=== PATIENT | male | born 1975 | race Two or more races ===

== ENCOUNTER 2023-08-31 13:30 | Outpatient (AMB) | payer MEDICAID, SELFPAY ==
--- NOTE | 2023-08-31 13:37 | A.SPINEOV_ITS ---
Intake Visit Reasons: Lumbar Spondylosis Intake Note: Mr. Elizabeth is here today c/o back pain. MRI done at [facility]. Forensics Team Director Required: No Allergies No Known Allergies Allergy (Verified 10/28/23 12:57) Assessment & Plan Assessment & Plan (1) Lumbar radiculopathy: Code(s): M54.16 - Radiculopathy, lumbar region Category: Medical Plan Dear DIONICIO Benavidez, Thank you for referring Bryn to our office today. He is a pleasant 47 year old male who comes in today with a CC of low back pain with shooting pains into his right lower extremity. He reports that this has been ongoing for years, and is unable to identify a specific inciting incident. He states that this has been treated with cortisone injections at [facility]. In addition to this he takes gabapentin and [id number] Tylenol to help mitigate his pain. When describing his radiculopathy he states it starts in his low back and shoots into his right lateral thigh. He reports some numbness in his right lateral thigh as well. 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 In his incoming medical records from his primary care there was some report of a remote Hx of a stress fracture, but the patient is unable to specify exactly where in the spine this happened. PMH: Appendectomy, ED, abdominal hernia, major depressive disorder, Hx hepatic cirrhosis, ROBERT on CPAP Social hx: 1/2 pack cigarettes daily, Opiate use disorder (last use 04/2023) with Hx Suboxone clinics (none current). Medications: gabapentin, Celebrex. Allergies: NKDA. Physical exam: Bryn has 5/5 strength in his upper and lower extremities. He does elicit pain to right-sided knee flexion stating it causes right hip pain. He reports slight hypoesthesia to his right lateral hip. Denies any other sensational changes. His bilateral patellar reflexes are 1+ hypoactive. He ambulates well without an antalgic gait. No spasticity. (-) bilateral straight leg raise. (-) clonus. Imaging review: MRI of the lumbar spine completed at [facility] shows no obvious nerve root impingement. The central canal and bilateral foramen appear patent overall. There is some mild central canal and formainal stenosis from L2-5 but this is minimal / not concerning neurologically. Impression: Bryn is a pleasant 47 year old male who is unfortunately suffering from both back pain and some R sided leg pain. His MRI is non-surgical. He expressed interest in continued cortisone injections, as he no longer goes to [facility]. I informed him I would have a referral completed for our colleagues in pain management / physiatry. They will most likely need to obtain his records from [facility] to identify what conservative measures he has exhausted with their practice. Thank you for allowing us to care for your patient. The total time spent with this visit with this patient was 45 minutes reviewing history, physical exam, MRI imaging review, and implementation of treatment plan or further diagnostic testing Mina Lewis MD,PhD [facility] Orders: Referrals Pain Management Referral M54.9 - Dorsalgia, unspecified Coding Level of Care Code New Pt Level 4 (85629) Diagnoses Lumbar radiculopathy M54.16
== END 2023-08-31 14:11 | disposition home or self-care (01) ==
PROVIDERS: PCP Nurse Practitioner Family; Referring Provider Nurse Practitioner Family; Visit Provider Physician Assistant
DX: M54.16 Radiculopathy, lumbar region (principal)
CPT/HCPCS: 99204

== ENCOUNTER → 2023-08-31 13:30 | Outpatient (BNVA) | payer MEDICAID, SELFPAY | PROVIDERS: PCP Nurse Practitioner Family; Visit Provider Physician Assistant | DX: M54.16 Radiculopathy, lumbar region (principal) | CPT/HCPCS: 99212 ==

== ENCOUNTER 2023-10-28 12:37 | Outpatient (AMB) | payer MEDICAID, SELFPAY ==
[2023-10-28 12:56] VITALS: BP 146/80; PULSE 91; O2SAT 92; BMI 32.5
--- NOTE | 2023-10-28 12:56 | MHC.OFFVIS ---
Vital Signs 10/28/23 12:56 Height 5 ft 8 in Weight 214 lb BMI 32.5 BP 146/80 H Blood Pressure Location Lt brachial Position Sitting Pulse 91 Pulse Source Pulse Oximeter Pulse Oximetry (%) 92 Oxygen Delivery Method Room Air Intake Visit Reasons: Dorsalgia Allergies No Known Allergies Allergy (Verified 10/28/23 12:57) Medication List - Last Reconciled 10/28/23 by Aleida Fung gabapentin 800 mg PO TID HPI Comments Details: Bryn presents to the office today for evaluation management of his chronic lower back pain He has been suffering with this pain for many years, recently was evaluated by neuro spine and referred here for management. He denies inciting injury, fall, trauma Last year he was getting cortisone injections at [email or web address]. He then missed a couple of appointments and they are no longer allowing him to schedule injection appointments. He states his symptoms are the same as they were while he was receiving these injections and these injections provided him 6 months of pain relief each time Endorses midline/right lower back pain with radiation down the right leg to the foot Pain today is rated as an 8/10, constant throughout the day Pain is exacerbated by bending, lifting, sitting Currently taking gabapentin with some improvement of his symptoms yet pain persists Denies red flag symptoms including new loss of bowel, bladder or saddle anesthesia Completed physical therapy 9 months ago with some improvement but no resolution and since stopping physical therapy the pain has worsened In terms of muscle damage condition is described as aching, spasming, stabbing, sharp, tingling, cramping, throbbing Pain is negatively impacting patient's enjoyment of life, general activity, mood, normal work, recreational activities, sleep Endorses 1/2 pack per day smoking Denies alcohol or illicit substance use Denies implantable devices, pacemaker or defibrillator Denies current use of anticoagulants Review of Systems Const All systems reviewed & are unremarkable except as noted in HPI and below Physical Exam Vital Signs: Last Vital Signs Pulse 91 10/28/23 12:56 BP 146/80 H 10/28/23 12:56 Pulse Ox 92 10/28/23 12:56 Oxygen Delivery Method Room Air 10/28/23 12:56 BMI result Body Mass Index 32.5 General: awake, alert, oriented. Answers questions appropriately. Fully engaged in examination. Skin: warm, dry, intact HEENT: Normocephalic. Hearing intact. Cardiac: External chest normal in appearance. Respiratory: No cough, audible wheezing or stridor. Abdomen: without gross distension. MS: No obvious swelling or deformities. Able to stand on bilateral tiptoes and bilateral heels.? Able to transition from sit to stand unassisted. Ambulates with bilaterally normal heel strike and toe off Bilateral lower extremity strength 5/5 SLR positive on the right Nontender over bilateral PSIS Tenderness midline lumbar vertebrae and right lumbar musculature Negative footdrop, negative clonus Neurological: Oriented to person, place, time and situation. Thought process intact. No gait abnormalities appreciated. Psychiatric: Appropriate mood and affect. Good judgment and insight. Results Reviewed Results Reviewed: 09/26/2022 MR LS Assessment & Plan Assessment & Plan (1) Lumbar radiculopathy: Code(s): M54.16 - Radiculopathy, lumbar region Category: Medical Plan Patient presents the office today for evaluation management of his chronic right lower back pain Previously under when injections at [facility] which improved his pain, he would like to repeat these injections. Records have been requested for review Discussed options for treatment including diagnostic interventional testing, epidural steroid injections, peripheral nerve stimulation with Sprint, RFA and more permanent neuromodulation. Patient has exhausted greater than 6 months of conservative therapy including PT, prescription medications, [id number] medications and previous attempts at injections. After review records from [facility] is 4 0 plan for interventional management epidural steroid injection. All questions and concerns have been answered and patient agrees with the plan. Follow up after injections and sooner if needed. Coding Level of Care Code New Pt Level 4 (24215) Complex EM visit Add On G2211 Diagnoses Lumbar radiculopathy M54.16
== END 2023-10-28 13:25 | disposition home or self-care (01) ==
PROVIDERS: PCP Nurse Practitioner Family; Referring Provider Physician Assistant; Visit Provider Registered Nurse Emergency
DX: M54.16 Radiculopathy, lumbar region (principal)
CPT/HCPCS: 99204

== ENCOUNTER → 2023-10-28 12:37 | Outpatient (BNVA) | payer MEDICAID, SELFPAY | PROVIDERS: PCP Nurse Practitioner Family; Referring Provider Physician Assistant; Visit Provider Registered Nurse Emergency | DX: M54.16 Radiculopathy, lumbar region (principal); G89.29 Other chronic pain | CPT/HCPCS: 99212 ==

== ENCOUNTER 2024-01-06 13:41 | Outpatient (AMB) | payer MEDICAID, SELFPAY ==
--- NOTE | 2024-01-06 13:46 | MHC.OFFVIS ---
Vital Signs 01/06/24 13:47 Height 5 ft 8 in Weight 212 lb BMI 32.2 BP 142/77 H Blood Pressure Location Rt brachial Position Sitting Pulse 84 Pulse Source Pulse Oximeter Pulse Oximetry (%) 95 Oxygen Delivery Method Room Air Intake Visit Reasons: Patient Req: Appt To Go Over PSSP Notes/Next Steps Allergies No Known Allergies Allergy (Verified 01/06/24 13:47) Medication List - Last Reconciled 01/06/24 by Aleida Fung gabapentin 800 mg PO TID HPI Comments Details: Patient presents back to the office today for follow-up right lower back pain Records from [facility] reviewed with the patient today Endorses pain over right PSIS, worse with sitting and standing He underwent right sacroiliac joint injection at [facility] 1 year ago, states he received 80% pain relief with improvement in functional mobility for at least 6 months after the injection Completed physical therapy 9 months ago with minimal improvement of his symptoms. Continues with home exercise program but pain persists. No improvement with NSAIDs, gabapentin, muscle relaxers Pain today is rated as a 7/10 Intake note: Bryn presents to the office today for evaluation management of his chronic lower back pain He has been suffering with this pain for many years, recently was evaluated by neuro spine and referred here for management. He denies inciting injury, fall, trauma Last year he was getting cortisone injections at [facility]. He then missed a couple of appointments and they are no longer allowing him to schedule injection appointments. He states his symptoms are the same as they were while he was receiving these injections and these injections provided him 6 months of pain relief each time Endorses midline/right lower back pain with radiation down the right leg to the foot Pain today is rated as an 8/10, constant throughout the day Pain is exacerbated by bending, lifting, sitting Currently taking gabapentin with some improvement of his symptoms yet pain persists Denies red flag symptoms including new loss of bowel, bladder or saddle anesthesia Completed physical therapy 9 months ago with some improvement but no resolution and since stopping physical therapy the pain has worsened In terms of muscle damage condition is described as aching, spasming, stabbing, sharp, tingling, cramping, throbbing Pain is negatively impacting patient's enjoyment of life, general activity, mood, normal work, recreational activities, sleep Endorses 1/2 pack per day smoking Denies alcohol or illicit substance use Denies implantable devices, pacemaker or defibrillator Denies current use of anticoagulants Review of Systems Const All systems reviewed & are unremarkable except as noted in HPI and below Physical Exam Vital Signs: Last Vital Signs Pulse 84 01/06/24 13:47 BP 142/77 H 01/06/24 13:47 Pulse Ox 95 01/06/24 13:47 Oxygen Delivery Method Room Air 01/06/24 13:47 BMI result Body Mass Index 32.2 General: awake, alert, oriented. Answers questions appropriately. Fully engaged in examination. Skin: warm, dry, intact HEENT: Normocephalic. Hearing intact. Cardiac: External chest normal in appearance. Respiratory: No cough, audible wheezing or stridor. Abdomen: without gross distension. MS: No obvious swelling or deformities. Able to transition from sit to stand unassisted. Ambulates with bilaterally normal heel strike and toe off Bilateral lower extremity strength 5/5 SLR positive on the right Tenderness right PSIS, [place] positive on the right, thigh thrust positive on the right, SI compression positive on the right Tenderness midline lumbar vertebrae and right lumbar musculature Neurological: Oriented to person, place, time and situation. Thought process intact. No gait abnormalities appreciated. Psychiatric: Appropriate mood and affect. Good judgment and insight. Results Reviewed Results Reviewed: 09/26/2022 MR LS Assessment & Plan Assessment & Plan (1) Lumbar radiculopathy: Code(s): M54.16 - Radiculopathy, lumbar region Category: Medical Plan Patient presented to the office today for follow-up right lower back pain Previously underwent injections at [facility], records were reviewed. He endorses 80% pain relief and improvement in functional ability after a right sacroiliac joint injection 1 year ago. Who would like to repeat this injection Patient has exhausted greater than 6 months of conservative therapy including nonsteroidal anti-inflammatory medication, PT, home exercise program, prescription medications, [id number] medications and previous attempts at injections. Will schedule for fluoroscopy guided right therapeutic sacroiliac joint injection with local anesthetic. All questions and concerns have been answered and patient agrees with the plan. Follow up after injections and sooner if needed. Coding Level of Care Code Est Pt Level 3 (54855) Complex EM visit Add On G2211 Diagnoses Lumbar radiculopathy M54.16
[2024-01-06 13:47] VITALS: BP 142/77; PULSE 84; O2SAT 95; BMI 32.2
== END 2024-01-06 14:07 | disposition home or self-care (01) ==
PROVIDERS: PCP Nurse Practitioner Family; Visit Provider Registered Nurse Emergency
DX: M54.16 Radiculopathy, lumbar region (principal)
CPT/HCPCS: 99213

== ENCOUNTER → 2024-01-06 13:41 | Outpatient (BNVA) | payer MEDICAID, SELFPAY | PROVIDERS: PCP Nurse Practitioner Family; Visit Provider Registered Nurse Emergency | DX: M54.16 Radiculopathy, lumbar region (principal) | CPT/HCPCS: 99212 ==

== ENCOUNTER 2024-03-08 06:23 | Outpatient (REF) | payer MEDICAID, SELFPAY | END 2024-03-08 06:24 | disposition home or self-care (01) | LOC: CF 06:23 | PROVIDERS: Visit Provider Anesthesiology | DX: Z13.89 Encounter for screening for other disorder (principal) ==

== ENCOUNTER 2024-08-02 06:06 | Outpatient (REF) | payer MEDICAID, SELFPAY ==
--- OUTSIDE RECORDS SUMMARY | 2024-08-02 06:09 | XMS_ITS | Clinical Summary ---
Author Organization [address] [facility] Address [address] [place] [address] Phone Care Team Providers Care Record Changer Tester Name Role Phone Nia Benavidez NP Primary Care Provider [phone] Allergies No known active allergies Medications ibuprofen (ADVIL,MOTRIN) 800 mg tablet Take 1 tablet (800 mg total) by mouth every 6 (six) hours if needed. 3 Active acetaminophen (TYLENOL) 500 mg tablet Take 1 tablet (500 mg total) by mouth See administration instructions. every 4-6 hours as needed 4 Active albuterol HFA (PROAIR HFA ; PROVENTIL HFA ; VENTOLIN HFA) 90 mcg/actuation inhaler Inhale 2 puffs by mouth Every 4 hours as needed. 5 Active celecoxib (CeleBREX) 400 mg capsule Take 1 capsule (400 mg total) by mouth 2 (two) times a day if needed for moderate pain. 4 Active cloNIDine (CATAPRES) 0.1 mg tablet Take 1 tablet (0.1 mg total) by mouth 3 (three) times a day if needed (anxiety). Active docusate sodium (COLACE) 100 mg capsule Take 1 capsule (100 mg total) by mouth 2 (two) times a day. 4 Active famotidine (PEPCID) 20 mg tablet Take 1 tablet (20 mg total) by mouth 2 times daily as needed. 5 Active gabapentin (NEURONTIN) 800 mg tablet Take 1 tablet (800 mg total) by mouth 3 (three) times a day. Active gemfibroziL (LOPID) 600 mg tablet 2 (two) times a day. 5 Active LORazepam (ATIVAN) 1 mg tablet For dental procedures Active sertraline (ZOLOFT) 100 mg tablet Take 1 tablet (100 mg total) by mouth 1 (one) time each day. Active sildenafiL (VIAGRA) 50 mg tablet if needed. Active traZODone (DESYREL) 50 mg tablet Take 1 tablet (50 mg total) by mouth at bedtime. Active Social History Tobacco Use Types Packs/Day Years Used Date Smoking Tobacco: Never Assessed Sex and Gender Information Value Date Recorded Sex Assigned at Male 05/05/2024 3:02 PM EDT Legal Sex Male 2:56 PM EST Gender Identity Male 05/05/2024 3:02 PM EDT Sexual Orientation Straight 05/05/2024 3: 02 PM EDT Last Filed Vital Signs Vital Sign Reading Time Taken Comments Blood Pressure 104/64 04/11/2024 2:32 PM EST Pulse 70 04/11/2024 2:32 PM EST Temperature - - Respiratory Rate - - Oxygen Saturation - - Inhaled Oxygen Concentration - - Weight 93.9 kg (207 lb) 04/11/2024 2:32 PM EST Height 170.2 cm (5' 7 ) 04/11/2024 2:32 PM EST Body Mass Index 32.42 04/11/2024 2:32 PM EST Plan of Treatment Health Maintenance Due Date Last Done Comments Hepatitis A Vaccines (1 of 2 - Risk 2-dose series) 10/24/1995 Hepatitis B Vaccines (1 of 3 - 19+ 3-dose series) 10/24/1995 Pneumococcal Vaccine: Pediatrics (0 to 5 Years) and At-Risk Patients (6 to 64 Years) (1 of 2 - PCV) 10/24/1995 Colorectal Cancer Screening: Colonoscopy 01/15/2022 HIV Screening 01/15/2022 Social Influencers of Health Screening 01/15/2022 COVID-19 Vaccine (2 - season) 2023 04/04/2021 Influenza Vaccine (Season Ended) 2024 2021 Depression Screening 07/22/2025 07/22/2024 Cholesterol Screening (Lipid Panel) 04/05/2029 04/05/2024, 04/05/2024, 10/14/2022, Additional history exists DTaP,Tdap,and Td Vaccines (2 - Td or Tdap) 07/24/2031 07/23/2021 Hepatitis C Screening Completed 05/07/2023 HIB Vaccines Aged Out No longer eligi ble based on patient's age to complete this topic HPV Vaccines Aged Out No longer eligi ble based on patient's age to complete this topic IPV Vaccines Aged Out No longer eligi ble based on patient's age to complete this topic MMR Vaccines Aged Out No longer eligi ble based on patient's age to complete this topic Meningococcal ACWY Vaccine Aged Out N o longer eligible based on patient's age to complete this topic Meningococcal B Vaccine Aged Out No l onger eligible based on patient's age to complete this topic RSV Immunization Patients Under 20 months Aged Out No longer eligible based on patient's age to complete this topic Varicella Vaccines Aged Out No longer eligible based on patient's age to complete this topic Insurance MEDICAID - [place] Care Teams Record Changer Tester Relationship Specialty Start Date End Date Nia Benavidez NP [address] [place] [address] PCP - General Nurse Practitioner 11/13/23
== END 2024-08-02 06:07 | disposition home or self-care (01) ==
LOC: CF 06:06
PROVIDERS: Visit Provider Anesthesiology
DX: Z13.89 Encounter for screening for other disorder (principal)

== ENCOUNTER 2024-11-01 06:31 | Outpatient (REF) | payer MEDICAID, SELFPAY ==
--- OUTSIDE RECORDS SUMMARY | 2024-11-01 06:33 | XMS_ITS | Clinical Summary ---
Author Organization [address] [facility] Address [address] [place] [address] Phone Care Team Providers Care Geothermal Field Technician Name Role Phone Nia Benavidez NP Primary Care Provider [phone] Allergies No known active allergies Medications ibuprofen [...] mg tablet 2 (two) times a day. Active LORazepam (ATIVAN) 1 mg tablet For dental procedures Active sertraline (ZOLOFT) 100 mg tablet Take 1 tablet (100 mg total) by mouth 1 (one) time each day. Active sildenafiL (VIAGRA) 50 mg tablet if needed. Active traZODone (DESYREL) 50 mg tablet Take 1 tablet (50 mg total) by mouth at bedtime. 4 Active Social History Tobacco Use Types Packs/Day [...] 5 Years) and At-Risk Patients (6 to 49 Years) (1 of 2 - PCV) 10/24/1995 Colorectal Cancer Screening: Colonoscopy 01/15/2022 HIV Screening 01/15/2022 Social Influencers of Health Screening 01/15/2022 Depression Screening 02/17/2024 COVID-19 Vaccine (2 - 2024- season) 2024 04/04/2021 Influenza Vaccine (#1) 2024 2021 Cholesterol Screening (Lipid Panel) 04/05/2029 04/05/2024, 04/05/2024, [...] topic Insurance MEDICAID - [place] Care Teams Geothermal Field Technician Relationship Specialty Start Date End Date Nia Benavidez NP [address] [place] [phone] PCP - General Nurse Practitioner 11/13/23
== END 2024-11-01 06:32 | disposition home or self-care (01) ==
LOC: CF 06:31
PROVIDERS: Visit Provider Anesthesiology
DX: Z13.89 Encounter for screening for other disorder (principal)